=== PATIENT | male | born 1990 | race African-American/Black ===

== ENCOUNTER 2018-09-13 23:45 | Emergency (ER) | payer BC ==
[~2018-09-13] VITALS: Ht 185.4 cm; Wt 93.4 kg
[2018-09-13 23:48] VITALS: BP 152/88
--- NOTE | 2018-09-14 01:32 | PHYS DOC ---
Past Medical History Past Medical History: No Pertinent History Past Surgical History: Other Alcohol Use: None Drug Use: None Adult General Chief Complaint Chief Complaint: MECHANICAL FALL HPI HPI Patient is a 28 year old male who presents with facial injuries. Patient fell into a tree this evening. There was no loss of consciousness. No nausea or vomiting. Patient is not on any blood thinners. Reports his last tetanus vaccine was less than 5 years ago. Bleeding was controlled with pressure. Symptoms are moderate to mild in severity[] Review of Systems Review of Systems Constitutional: Denies fever or chills [] Eyes: Denies change in visual acuity, redness, or eye pain [] HENT: Denies nasal congestion or sore throat [] Respiratory: Denies cough or shortness of breath [] Cardiovascular: No chest pain or palpitations[] GI: Denies abdominal pain, nausea, vomiting, bloody stools or diarrhea [] : Denies dysuria or hematuria [] Musculoskeletal: Denies back pain or joint pain [] Integument: Denies rash, see history of present illness[] Neurologic: Denies headache, focal weakness or sensory changes [] Endocrine: Denies polyuria or polydipsia [] All other systems were reviewed and found to be within normal limits, except as documented in this note. Physical Exam Physical Exam Constitutional: Well developed, well nourished, no acute distress, non-toxic appearance. [] HENT: Normocephalic, abrasion over his for head, proximal nose, and right zygoma. No suturable wound identified. There is no crepitus. TMs are clear, no blood no fluid, bilateral external ears normal, oropharynx moist, no oral exudates, nose normal. [] Eyes: PERRLA, EOMI, conjunctiva normal, no discharge. [] Neck: Normal range of motion, no tenderness, supple, no stridor. [] Cardiovascular:Heart rate regular rhythm, no murmur [] Lungs & Thorax: Bilateral breath sounds clear to auscultation [] Abdomen: Bowel sounds normal, soft, no tenderness, no masses, no pulsatile masses. [] Skin: Warm, dry, no erythema, no rash. [] Back: No tenderness, no CVA tenderness. [] Extremities: No tenderness, no cyanosis, no clubbing, ROM intact, no edema. [] Neurologic: Alert and oriented X 3, normal motor function, normal sensory function, no focal deficits noted. [] Psychologic: Affect normal, judgement normal, mood normal. [] Current Patient Data Vital Signs Vital Signs Date Time Temp Pulse Resp B/P (MAP) Pulse Ox O2 Delivery O2 Flow Rate FiO2 09/13/18 23:48 98.3 107 18 152/88 (109) 98 Room Air 98.3 EKG EKG [] Radiology/Procedures Radiology/Procedures [] Course & Med Decision Making Course & Med Decision Making Pertinent Labs and Imaging studies reviewed. (See chart for details) ED course: Patient arrived, was placed in bed, and tolerated exam well. Wounds were repaired, see laceration repair section. Patient was discharged in police custody and in improved condition. Medical decision making: There is no evidence of need for advanced imaging, no significant blood loss. No evidence of cervical spine injury. No evidence of intracranial mass or bleed.[] Dragon Disclaimer Dragon Disclaimer This electronic medical record was generated, in whole or in part, using a voice recognition dictation system. Departure Departure Impression: Primary Impression: Facial abrasion Disposition: 01 HOME, SELF-CARE Condition: IMPROVED Referrals: UNKNOWN PCP NAME (PCP) Patient Instructions: Abrasions Additional Instructions: Follow-up with your regular doctor in 2 days for a wound check. If you do not have regular doctor, list of local clinics will be provided for you. Return to the ER if worsening pain, purulent drainage, or any other concerns. For this skin glue that was applied: Keep your wound clean and dry for 1 to 5 days. You can shower 24 hours after the skin adhesive is applied. Do not soak your wound in water, such as in a bath or hot tub. Do not scrub your wound or pick at the adhesive. This can make your wound reopen. Do not apply ointments to your wound. Laceration Repair Lac Repair Indication: [] Procedure: The patient was placed in the appropriate position and the area was then cleansed. The laceration was closed with skin glue. [ADDITIONAL LACS] . Total repaired wound length: 5 cm. Other Items: None] The patient tolerated the procedure well. Complications: None. Problem Qualifiers Primary Impression: Facial abrasion Encounter type: initial encounter Qualified Codes: S00.81XA - Abrasion of other part of head, initial encounter KUSH QUEVEDO DO Sep 14, 2018 01:32
== END 2018-09-14 01:37 | disposition home or self-care (01) ==
LOC: ER 09-14 00:39
DX: S01.81XA Laceration without foreign body of other part of head, initial encounter (principal); W18.09XA Striking against other object with subsequent fall, initial encounter; Y93.02 Activity, running; Y92.89 Other specified places as the place of occurrence of the external cause; Y99.8 Other external cause status
CPT/HCPCS: 12013; 99283